=== PATIENT | male | born 1990 | race African-American/Black ===

== ENCOUNTER 2022-09-24 19:17 | Emergency (ER) | payer OTHER ==
[~2022-09-24] VITALS: Ht 175.3 cm; Wt 80.9 kg
[2022-09-24] MEDS ORDERED: PRED10TA3 PO (19:33)
[2022-09-24] MEDS ORDERED: TOPI25 PO (19:33)
[2022-09-24] MEDS ORDERED: FIORECET PO (19:36)
[2022-09-24 21:30] VITALS: BP 121/73
[2022-09-25] MEDS ORDERED: BUTA-318 PO (15:05)
== END 2022-09-24 21:30 | disposition home or self-care (01) ==
LOC: EMS 19:28
DX: G43.909 Migraine, unspecified, not intractable, without status migrainosus (principal); Z90.49 Acquired absence of other specified parts of digestive tract; Z98.890 Other specified postprocedural states
CPT/HCPCS: 99281; Z7502